=== PATIENT | female | born 1955 | race Caucasian/White ===

== ENCOUNTER 2017-07-29 20:37 | Emergency (ER) | payer BC ==
[~2017-07-29] VITALS: Ht 170.2 cm; Wt 74.2 kg
[2017-07-29 20:39] VITALS: BP 177/84; PULSE 75; RESP 14; TEMP 98.4; O2SAT 98
[2017-07-29] MEDS ORDERED: TRAZ100T10 PO (20:48)
[2017-07-29] MEDS ORDERED: SERT-132 PO (20:48)
[2017-07-29] MEDS ORDERED: oxyCODONE/ACETAMINOPHEN 5 MG/325 MG TAB PO ONE (21:45)
[2017-07-29] MEDS ORDERED: LORazepam 0.5 MG TAB PO ONE (21:45)
[2017-07-29] MEDS ORDERED: LIDOCAINE HCL 1% 20 ML VIAL INFIL ONE (21:45)
--- NOTE | 2017-07-29 22:08 | PD ---
HPI Chief Complaint: Foreign Body Time Seen by Provider: 21:02 Travel History International Travel<30 days: No Contact w/Intl Traveler<30days: No Traveled to known affect area: No History of Present Illness HPI Patient has hearing aid rubber pieces in her ear she went to urgent care they try to flush it out there was too much pain she could not tolerate it and they told her she can come to the ER. In the ER she is complaining of pain in the right ear and she chose me the apparatus there is a tiny little rubber stopper she thinks is in her ear and she thinks there might be 2 in the same side. I looked in the ear I ceased strange reflection but not sure what I see I go to look into the left ear to look at her normal eardrum and I see another one of the apparatus in that ear she is a total of 3 of these rubber stoppers in her external canals one has been in their few days the other 2 probably more than weeks PFSH Past Medical History Medical other: Yes (RLS) ?: Not Past Surgical History Abdominal Surgery: Yes (GASTRIC BYPASS) Section: Yes Social History Alcohol Use: No Tobacco Use: No Substance Use: No Allergies-Medications (Allergen,Severity, Reaction): Coded Allergies: No Known Allergies (Unverified , 07/29/17) Reported Meds & Prescriptions Reported Meds & Active Scripts Active Tramadol (Tramadol HCl) 50 Mg Tab 50 Mg PO Q4H PRN Amoxicillin 250 Mg Cap 250 Mg PO BID PRN Reported Sertraline (Sertraline HCl) 50 Mg Tab 50 Mg PO DAILY Trazodone (Trazodone HCl) 100 Mg Tablet 100 Mg PO HS Review of Systems Except as stated in HPI: all other systems reviewed are Neg HENT: Positive: Earache (FB from hearing aise in ear canal) Physical Exam Narrative GENERAL: awake alert no distress SKIN: Warm and dry. HEAD: Atraumatic. Normocephalic. EYES: Pupils equal and round. No scleral icterus. No injection or drainage. ENT: No nasal bleeding or discharge. Mucous membranes pink and moist. external canal right has a small black rubber 2mm object in canal other removed by this MD with allegator forceps NECK: Trachea midline. No JVD. CARDIOVASCULAR: Regular rate and rhythm. RESPIRATORY: No accessory muscle use. Clear to auscultation. Breath sounds equal bilaterally. GASTROINTESTINAL: Abdomen soft, non-tender, nondistended. Hepatic and splenic margins not palpable. MUSCULOSKELETAL: Extremities without clubbing, cyanosis, or edema. No obvious deformities. NEUROLOGICAL: Awake and alert. No obvious cranial nerve deficits. Motor grossly within normal limits. Five out of 5 muscle strength in the arms and legs. Normal speech. PSYCHIATRIC: pt becomes very anxious when I am gently sliding forceps in to . ; insight and judgment normal. Data Data Last Documented VS Vital Signs Date Time Temp Pulse Resp B/P (MAP) Pulse Ox O2 Delivery O2 Flow Rate FiO2 07/29/17 20:39 98.4 75 14 177/84 (115) 98 Orders Orders Lorazepam (Ativan) (07/29/17 21:45) Oxycodone-Acetamin 5-325 Mg (Percocet (07/29/17 21:45) Lidocaine 1% Inj (Xylocaine 1% Inj) (07/29/17 21:45) Ed Discharge Order (07/29/17 22:55) MDM Medical Decision Making Medical Screen Exam Complete: Yes Emergency Medical Condition: Yes Differential Diagnosis FB ear vs multiple FB external canals vs ear canal hearing aide implants and FB Narrative Course With alligator clips I was able to remove 1 of the rubber stopper is in her ear however there were 2 more on each side embedded with epithelialization unable to remove them without better clips she will be discharged with an ENT consult follow-up and given antibiotics as well as pain med and follow-up as an outpatient Procedures Procedure Narrative With alligator clips I remove 1 of the rubber stopper from the eardrum on the right side without complication. There remains 2 more one in each ear canal now they seem to be overgrown epithelialized at this point Diagnosis Primary Impression: Foreign body in auditory canal Qualified Codes: T16.9XXA - Foreign body in ear, unspecified ear, initial encounter Referrals: Fransisco Dempsey MD Patient Instructions: Ear Foreign Body (ED), General Instructions Additional Instructions: Follow-up with Dr. Lara is the ears nose and throat doctor he can remove the foreign bodies from either ear canals take amoxicillin twice a day to prophylax against any infection and take the ibuprofen and tramadol if ear pain persists return to the ER if any difficulty with follow-up otherwise call the number listed on her discharge papers Scripts Tramadol (Tramadol) 50 Mg Tab 50 MG PO Q4H Y for PAIN, #10 TAB 0 Refills Prov: Moise Cavanaugh MD 07/29/17 Amoxicillin (Amoxicillin) 250 Mg Cap 250 MG PO BID Y for AGITATION, #10 CAP 0 Refills Prov: Moise Cavanaugh MD 07/29/17 Disposition: 01 DISCHARGE HOME Condition: Good Moise Cavanaugh MD Jul 29, 2017 22:08
[2017-07-29] MEDS ORDERED: TRAM50TA PO (22:58)
[2017-07-29] MEDS ORDERED: AMOX250C3 PO (22:58)
== END 2017-07-29 23:07 | disposition home or self-care (01) ==
LOC: PHEFT 20:37
DX: T16.1XXA Foreign body in right ear, initial encounter (principal); T16.2XXA Foreign body in left ear, initial encounter; X58.XXXA Exposure to other specified factors, initial encounter
CPT/HCPCS: 69200